=== PATIENT | male | born 1945 | race Caucasian/White ===

== ENCOUNTER 2021-07-10 15:05 | Outpatient (CLI) | payer MEDICARE, SELFPAY | END 2021-07-10 23:59 | disposition short-term general hospital (02) | LOC: LABSPEC 15:06 | PROVIDERS: Referring Provider Physician Assistant; Visit Provider Physician Assistant | DX: U07.1 COVID-19 (principal) | CPT/HCPCS: 87635; U0003; U0005 ==

== ENCOUNTER → 2022-08-25 | Outpatient (CLI) | payer MEDICARE, SELFPAY ==
--- NOTE | 2022-08-25 11:30 | PET_ITS ---
EXAMINATION: FDG PET/CT ? INDICATIONS: 76-year-old male with a history of lymphoma, presenting for presumed initial staging examination. ? COMPARISON EXAMINATION: ? INDEX LESION SIZE SUV INTERPRETATION Supraclavicular region Maximum axial diameter 30.1 mm 5.0. [place] Deauville score 5 Quantitative criteria for viable neoplasm are fulfilled ? TECHNIQUE: Following the intravenous administration of 12.43 mCi of F-18 deoxyglucose via the left hand, multiplanar image acquisitions of the neck, chest, abdomen and pelvis to the level of the midthigh, obtained at one-hour post radiopharmaceutical administration contemporaneously interpreted reveal: ? SERUM GLUCOSE LEVEL:? 127 mg/dL? HEIGHT:?? 67 inches WEIGHT:?? 200 pounds ? FINDINGS: ? HEAD/NECK:? There is no evidence of abnormal increased glucose metabolism in the pharyngeal mucosal space, parapharyngeal space, oropharynx, bilateral-lateral and anterior neck, hypopharynx and distribution of the larynx. ? The visualized portion of the cerebral cortical-subcortical structures demonstrate symmetric and preserved glucose metabolism. ? CHEST: Enhanced radiopharmaceutical concentration is defined in the right supraclavicular region generating a calculated standard uptake value of 5.0. The [place] Deauville score is 5. The maximum axial diameter of the metabolic, morphologic abnormality is 30.1 mm. There is visualized radiopharmaceutical concentration noted in the left ventricular myocardium, consistent with the [place].?? ? CT of the chest demonstrates the following anatomic characteristics: Calcified and noncalcified mediastinal thoracic perihilar as well as bilateral subcentimeter axillary soft tissue densities with fatty hilus are nonglucose avid. Atherosclerotic calcification is defined in the thoracic aorta without evidence of dilatation, aneurysm formation. Coronary arterial calcification is observed. Calcified density defined in the left lower posterior lung zone is ametabolic. A small left hemithorax pleural effusion is nonglucose avid. ? ABDOMEN/PELVIS:? Normal physiologic distribution of the radiopharmaceutical is identified in the hepatic (3.6) and splenic parenchyma, both renal units, urinary bladder, and visualized intestinal tract. Diffuse intestinal tract is identified in all four quadrants of the abdomen and pelvis. ? CT of the abdomen and pelvis is remarkable for the following: Atherosclerotic calcification is defined in the abdominal aorta without evidence of dilatation, aneurysm formation. Abdominal-pelvic arterial calcification is observed. Exophytic cyst formation is noted in the bilateral kidneys. A fat-containing right inguinal hernia is noted. Right and left inguinal soft tissue densities subcentimeter in presentation are nonglucose avid. Calcified phlebolith formation is noted in the left lower hemipelvis. ? SKELETAL:? There is no evidence of quantitatively significant enhanced glucose metabolism on meticulous inspection of the appendicular and axial skeletal structures. ? Degenerative changes defined in the thoracic and lumbar spine demonstrate no evidence of increased glucose metabolism. There are no sclerotic, mixed sclerotic-lytic, or primarily lytic changes defined in the axial skeletal structures with evidence of increased FDG uptake. ? PET/PET/CT Tumor Base -Thigh Subs IMPRESSION: 1. ABNORMAL EXAMINATION INDICATIVE OF MALIGNANT-VIABLE NEOPLASM. 2. Increased radiopharmaceutical concentration noted in the right supraclavicular region fulfills quantitative criteria for viable neoplasm. 3. No other quantitatively significant hypermetabolic abnormalities are noted. Electronic Signature Josh Hawley D.O. Accurate Quantification of SUVs and standardized [place] scores specific to lymphoma FDG PET-CT study interpretation for this report are calculated using the exclusive [employer]. ([place] Patent No. [id number] 983 B2 [phone] [place] patent [phone]). Standardization and correction of the FDG SUV metric via [employer] technology allow for vendor non-specific objective quantitative examination comparison and optimization of the sensitivity and specificity of the FDG PET-CT examination. Electronically Signed: Josh Hawley, at 8:12 EST ,
== END | disposition home or self-care (01) ==
PROVIDERS: PCP Preventive Medicine Occupational Medicine; Referring Provider Internal Medicine Hematology & Oncology; Visit Provider Internal Medicine Hematology & Oncology
DX: C82.01 Follicular lymphoma grade I, lymph nodes of head, face, and neck (principal)
CPT/HCPCS: 78815; A9552